=== PATIENT | female | born 1940 | race Caucasian/White ===

== ENCOUNTER 2019-01-05 14:27 | Observation (INO) | payer OTHER ==
[~2019-01-05] VITALS: Ht 185.4 cm; Wt 97.5 kg
[2019-01-05] MEDS ORDERED: IOHEXOL-350 75 ML VIAL IV ONE (14:34)
[2019-01-05 15:07] LABS: BASOPHILS % (AUTO) 0.5 % (0.0-5.0); EOSINOPHILS % (AUTO) 0.9 % (0.0-8.0); HEMATOCRIT 43.6 % (36-48); LYMPHOCYTES % (AUTO) 30.9 % (21.0-51.0); MEAN CORPUSCULAR HEMOGLOBIN 32.7 pg (27.0-33.0); MEAN CORPUSCULAR HGB CONC 34.3 g/dL (32.0-36.0); MEAN CORPUSCULAR VOLUME 95.3 fL (79-99); MONOCYTES % (AUTO) 8.1 % (3.0-13.0); NEUTROPHILS % (AUTO) 59.6 % (40.0-77.0); NUCLEATED RED BLOOD CELLS 0.1 % (0.0-0.19); PLATELET COUNT (AUTO) 236 K/uL (130-400); RED BLOOD CELL COUNT(AUTO) 4.57 MIL/uL (4.00-5.50); RED CELL DISTRIBUTION WIDTH 13.4 % (11.0-15.5); WHITE BLOOD COUNT (AUTO) 8.7 K/uL (4.8-10.8)
[2019-01-05 15:23] LABS: CREATININE 0.8 mg/dL (0.5-1.5); POTASSIUM 4.5 mmol/L (3.5-5.1)
[2019-01-05 15:24] LABS: INR 0.96 (0.85-1.15); PARTIAL THROMBOPLASTIN TIME 26.6 SEC (26.3-35.5); PROTHROMBIN TIME 10.1 SEC (9.6-11.6)
[2019-01-05] MEDS ORDERED: [UNRECOGNIZED DRUG - OTHER] IJ SCH (15:30)
[2019-01-05] MEDS ORDERED: FOSPHENYTOIN SODIUM IJ SCH (15:30)
[2019-01-05 15:31] LABS: ALBUMIN 4.1 g/dL (3.5-5.0); BILIRUBIN,TOTAL 0.7 mg/dL (0.2-1.0); TOTAL PROTEIN, SERUM 7.4 g/dL (6.0-8.3)
[2019-01-05 16:22] LABS: APPEARANCE,URINE Clear (CLEAR); BILIRUBIN,URINE Negative (NEGATIVE); COLOR,URINE Yellow (YELLOW); GLUCOSE, URINE (UA) Negative (NEGATIVE); KETONES,URINE Negative (NEGATIVE); LEUKOCYTE ESTERASE ,URINE Negative (NEGATIVE); NITRATE,URINE Negative (NEGATIVE); OCCULT BLOOD,URINE Negative (NEGATIVE); PROTEIN,URINE Negative (NEGATIVE)
[2019-01-05 16:30] LABS: AMPHET/METH SCREEN,URINE NEGATIVE (NEGATIVE); BARBITURATE SCREEN, URINE NEGATIVE (NEGATIVE); BENZODIAZEPINES SCREEN,URINE NEGATIVE (NEGATIVE); CANNABINOID SCREEN,URINE NEGATIVE (NEGATIVE); COCAINE SCREEN,URINE NEGATIVE (NEGATIVE); OPIATE SCREEN,URINE NEGATIVE (NEGATIVE); PHENCYCLIDINE SCREEN,URINE NEGATIVE (NEGATIVE)
[2019-01-05] MEDS ORDERED: ASPIRIN 325 MG TABLET ONE (16:31)
[2019-01-05 16:32] LABS: BACTERIA,URINE Rare /HPF (None Seen); RBC,URINE 0-1 /HPF (0-1); SQUAMOUS EPITHELIAL CELL,UR Rare /HPF (0-2); WBC,URINE 0-1 /HPF (0-1)
[2019-01-05] MEDS ORDERED: ACETAMINOPHEN 325 MG TAB PO PRN ×2 (18:15)
[2019-01-05] MEDS ORDERED: ONDANSETRON HCL 4 MG/2 ML VIAL IV PRN (18:15)
[2019-01-05] MEDS ORDERED: ATORVASTATIN CALCIUM 20 MG TABLET ONE (20:58)
[2019-01-05] MEDS ORDERED: FAMOTIDINE/PF 20 MG/2 ML VIAL IV SCH (21:00)
[2019-01-05] MEDS ORDERED: ATORVASTATIN CALCIUM 10 MG TABLET PO SCH (21:00)
[2019-01-06] MEDS ORDERED: ASPIRIN 325 MG TABLET PO SCH (09:00)
[2019-01-06] MEDS ORDERED: ENOXAPARIN SODIUM 30 MG/0.3 ML SQ SCH (09:00)
[2019-01-08] MEDS ORDERED: LISI-613 PO (09:18)
== END 2019-01-05 23:49 | disposition left against medical advice (07) ==
LOC: EDH 14:27 → EDHIP 18:10
PROVIDERS: ADMIT Family Medicine; ATTEND Family Medicine
DX: G45.9 Transient cerebral ischemic attack, unspecified (principal); I10 Essential (primary) hypertension; F17.210 Nicotine dependence, cigarettes, uncomplicated; Z90.49 Acquired absence of other specified parts of digestive tract; Z90.710 Acquired absence of both cervix and uterus; Z79.899 Other long term (current) drug therapy
CPT/HCPCS: 36415; 70450; 70496; 70498; 71045; 80053; 80305; 81001; 82550; 82948; 83721; 84484; 85025; 85610; 85730; 93005; 99284; G0378 ×6; Q9967; Q2009

== ENCOUNTER → 2019-02-25 | Outpatient (CLI) | payer OTHER | END | disposition home or self-care (01) | LOC: RAH 14:21 | PROVIDERS: ATTEND Family Medicine | DX: M47.22 Other spondylosis with radiculopathy, cervical region (principal) | CPT/HCPCS: 72141 ==

== ENCOUNTER 2020-04-06 10:20 | Emergency (ER) | payer OTHER ==
[2020-04-06] MEDS ORDERED: MECLIZINE HCL 25 MG TABLET ONE (11:09)
[2020-04-06 11:16] LABS: BASOPHILS % (AUTO) 0.4 % (0.0-5.0); EOSINOPHILS % (AUTO) 1.5 % (0.0-8.0); HEMATOCRIT 43.1 % (36-48); LYMPHOCYTES % (AUTO) 19.4 % (21.0-51.0); MEAN CORPUSCULAR HEMOGLOBIN 31.5 pg (27.0-33.0); MEAN CORPUSCULAR HGB CONC 33.2 g/dL (32.0-36.0); MEAN CORPUSCULAR VOLUME 94.9 fL (79-99); MONOCYTES % (AUTO) 8.2 % (3.0-13.0); NEUTROPHILS % (AUTO) 70.4 % (40.0-77.0); PLATELET COUNT (AUTO) 246 K/uL (130-400); RED BLOOD CELL COUNT(AUTO) 4.54 MIL/uL (4.00-5.50); WHITE BLOOD COUNT (AUTO) 6.8 K/uL (4.8-10.8)
[2020-04-06 11:21] LABS: CREATININE 0.8 mg/dL (0.5-1.5); POTASSIUM 4.4 mmol/L (3.5-5.1)
[2020-04-06 11:26] LABS: ALBUMIN 3.8 g/dL (3.5-5.0); BILIRUBIN,TOTAL 0.5 mg/dL (0.2-1.0); TOTAL PROTEIN, SERUM 7.1 g/dL (6.0-8.3)
[2020-04-06 12:31] LABS: APPEARANCE,URINE Clear (CLEAR); BILIRUBIN,URINE Negative (NEGATIVE); COLOR,URINE Yellow (YELLOW); GLUCOSE, URINE (UA) Negative (NEGATIVE); KETONES,URINE Negative (NEGATIVE); LEUKOCYTE ESTERASE ,URINE Negative (NEGATIVE); NITRATE,URINE Negative (NEGATIVE); OCCULT BLOOD,URINE Negative (NEGATIVE); PH,URINE 6.5 (5.0-8.0); PROTEIN,URINE Negative (NEGATIVE); UROBILINOGEN,URINE 0.2 mg/dL (0.2-1.0)
== END 2020-04-06 12:10 | disposition home or self-care (01) ==
LOC: EDH 10:20
DX: H81.12 Benign paroxysmal vertigo, left ear (principal); I10 Essential (primary) hypertension; Z72.0 Tobacco use
CPT/HCPCS: 36415; 80053; 81003; 84484; 85025